=== PATIENT | female | born 1995 | race Caucasian/White ===

== ENCOUNTER 2018-10-18 22:50 | Emergency (ER) | payer OTHER ==
[~2018-10-18] VITALS: Ht 160 cm; Wt 52.2 kg
[2018-10-18 23:41] VITALS: Ht 160 cm; Wt 52.2 kg
[2018-10-19 03:02] VITALS: BP 124/71
== END 2018-10-19 03:02 | disposition home or self-care (01) ==
LOC: ED 22:50
DX: B34.9 Viral infection, unspecified (principal); J06.9 Acute upper respiratory infection, unspecified
CPT/HCPCS: 87804; J1885